=== PATIENT | male | born 1980 | race Caucasian/White ===

== ENCOUNTER → 2020-07-05 | Outpatient (CLI) | payer BC | END | disposition home or self-care (01) | LOC: COVID19 12:55 | PROVIDERS: ATTEND Internal Medicine | DX: U07.1 COVID-19 (principal) ==

== ENCOUNTER 2021-12-15 11:59 | Emergency (ER) | payer OTHER ==
[~2021-12-15] VITALS: Ht 175.3 cm; Wt 117.9 kg
[2021-12-15 12:53] LABS: BASO % 0.5 % (0.0-1.0); EOS # 0.1 10*3/uL (0.0-0.4); EOS % 1.2 % (1.0-4.0); HEMATOCRIT 43.9 % (42.0-52.0); LYMPH # 1.5 10*3/uL (1.3-4.4); LYMPH % 18.6 % (27.0-41.0); MEAN CORPUSCULAR HGB 31.3 pg (27.0-31.0); MEAN CORPUSCULAR HGB CONC 35.5 g/dl (33.0-37.0); MEAN PLATELET VOLUME 9.8 fl (9.6-12.3); MONO # 0.5 10*3/uL (0.1-1.0); MONO % 6.2 % (3.0-9.0); NEUT # 6.1 10*3/uL (2.3-7.9); NEUT % 73.1 % (47.0-73.0); PLATELET COUNT AUTOMATED 181 10*3/uL (130-400); RED BLOOD COUNT 4.99 10*6/uL (4.50-5.90); RED CELL DISTRI WIDTH 11.5 % (0-14.5); WHITE BLOOD COUNT 8.3 10*3/uL (4.8-10.8)
[2021-12-15 12:57] LABS: BILIRUBIN Negative (Negative); BLOOD Negative (Negative); CLARITY Clear (Clear); COLOR Yellow (Yellow); GLUCOSE Negative (Negative); KETONE Negative (Negative); LEUKO ESTERASE Negative (Negative); NITRITE Negative (Negative); PH 6.5 (4.5-8.0); SPECIFIC GRAVITY <= 1.005 (1.001-1.030)
[2021-12-15 13:08] LABS: ALKALINE PHOSPHATASE 102 U/L (45-117); BUN 12 mg/dl (7-24); CHLORIDE 109 mmol/L (98-107); CREATININE 1.08 mg/dL (0.70-1.30); POTASSIUM 3.8 mmol/L (3.5-5.1); SGOT/AST 20 IU/L (3-35); SGPT/ALT 40 U/L (12-78); SODIUM 141 mmol/L (136-145); TOTAL PROTEIN 7.6 gm/dL (6.4-8.2)
[2021-12-15 13:09] LABS: EPITHELIAL CELLS 0-2; WBC 0-2 wbc/hpf (0-5)
== END 2021-12-15 15:22 | disposition home or self-care (01) ==
LOC: ED 11:59
PROVIDERS: Physician Assistant
DX: R03.0 Elevated blood-pressure reading, without diagnosis of hypertension (principal); G43.909 Migraine, unspecified, not intractable, without status migrainosus